=== PATIENT | female | born 1980 | race American Indian/Alaskan Native ===

== ENCOUNTER 2018-04-21 18:35 | Outpatient (CLI) | payer OTHER | END 2018-04-21 18:36 | disposition home or self-care (01) | LOC: C.SLEEP 18:36 | DX: G47.33 Obstructive sleep apnea (adult) (pediatric) (principal) ==

== ENCOUNTER 2018-06-15 09:39 | Outpatient (CLI) | payer OTHER | END 2018-06-15 09:40 | disposition home or self-care (01) | LOC: C.RT 09:39 ==